=== PATIENT | female | born 1950 | race Caucasian/White ===

== ENCOUNTER 2019-01-27 20:37 | Observation (INO) | payer MEDICARE, BC ==
[2019-01-27] MEDS ORDERED: Morphine 2 MG/ML Syringe IVPUSH ONE (21:34)
[2019-01-27] MEDS ORDERED: Sodium Chloride 0.9% 10 ML Syringe FLUSH PRN (21:34)
[2019-01-27] MEDS ORDERED: Ondansetron 4 MG/2 ML SDV IVPUSH ONE (21:34)
[2019-01-27] MEDS ORDERED: Sodium Chloride 0.9% 1,000 ML IV ONE (21:34)
[2019-01-27] MEDS ORDERED: Sodium Chloride 0.9% 2.5 ML Syringe FLUSH PRN (21:34)
--- NOTE | 2019-01-27 21:36 | EDM.PDOC ---
ED HPI GENERAL MEDICAL PROBLEM - General Chief Complaint: Gastrointestinal Problem Stated Complaint: PT HAS CHEST PAINS Time Seen by Provider: 01/27/19 21:10 - History of Present Illness INITIAL COMMENTS - FREE TEXT/NARRATIVE: HISTORY AND PHYSICAL: History of present illness: The patient is a 68-year-old female with a known history of hypertension and atrial fibrillation for which she takes both digoxin and Cardizem and is on Xarelto who has an abdominal surgical history of multiple C-sections, hysterectomy, 2 ventral hernia repairs with recurrence, gastric sleeve and gastric bypass but still has her gallbladder appendix and has not had bowel surgery and presents with onset of mid abdominal pain at 7 AM associated with vomiting and inability to take anything by mouth. Patient has not been vomiting black or bloody but is only vomiting when she's putting in and she tells me that for the last several days she has had harder than usual and today she only had a very small amount which is unusual for her. She has been urinating without difficulty and has no flank pain she has no shortness of breath fevers or upper respiratory infection. She says that she does have some lower chest wall pain but attributes that this to her abdomen. She has no palpitations and states compliance with her A. fib medications. Describes the pain as achy and deep. Review of systems: As per history of present illness and below otherwise all systems reviewed and negative. Past medical history: As per history of present illness and as reviewed below otherwise noncontributory. Surgical history: As per history of present illness and as reviewed below otherwise noncontributory. Social history: No reported history of drug or alcohol abuse. Family history: As per history of present illness and as reviewed below otherwise noncontributory. Physical exam: General: Well-developed well-nourished female who is nontoxic and vital signs were noted by me. The patient had an emesis in the room prior to my arrival which I have looked at it and it is not black or bloody but looks dowling/greenish in color and it looks like there are some small seeds. Vital signs are noted by me HEENT: Atraumatic, normocephalic, pupils reactive, negative for conjunctival pallor or scleral icterus, mucous membranes tacky, throat clear, neck supple, nontender, trachea midline. Lungs: Clear to auscultation, breath sounds equal bilaterally, chest nontender. Heart: S1S2, regular rate but irregularly irregular rhythm consistent with her A. fib, no overt murmurs negative for clicks, rubs, or JVD. Abdomen: Soft, nondistended, is only minimal tenderness on deep palpation of the mid abdomen and this mid abdominal/periumbilical area is very globular and there appears to be a large ventral hernia. Negative for masses or hepatosplenomegaly. Bowel sounds are hypoactive and there is some tympany diffusely on percussion but no rebound or guarding Pelvis: Stable nontender. Genitourinary: Deferred. Rectal: Deferred. Extremities: Atraumatic, negative for cords or calf pain. Neurovascular unremarkable. No edema Neuro: Awake, alert, oriented. Cranial nerves II through XII unremarkable. Cerebellum unremarkable. Motor and sensory unremarkable throughout. Exam nonfocal. Diagnostics: EKG CBC CMP amylase lipase INR digoxin level lactate troponin one view chest x- ray UA with micro-CT scan of the abdomen and pelvis urine culture Therapeutics: IV O2 monitor IV fluids Zofran and morphine 0025: THis was discussed with our surgeon regional sales director Dr. Hoskins who is aware of all test results including CAT scan and would like to be the planning consultant on this case and have the case admitted to medicine. I will discuss this case with the hospitalist Patient looks much improved and is no longer having any vomiting and feels really great but she is aware of all testing results and need for admission. Case was discussed with Dr. Keating at 004 7 AM and he agrees for observation admission Impression: Small bowel obstruction Ventral wall hernias stable Definitive disposition and diagnosis as appropriate pending reevaluation and review of above. abdominal Pain Score (Numeric/FACES): 8 - Related Data Allergies Allergy/AdvReac Type Severity Reaction Status Date / Time Penicillins Allergy Rash Verified 01/27/19 21:05 Home Meds: Home Meds Sertraline [Zoloft] 100 mg PO DAILY 10/13/13 [History] Aspirin [Adult Low Dose Aspirin EC] 81 mg PO DAILY #100 tablet. 01/15/14 [Rx] Digoxin [Lanoxin] 250 mcg PO DAILY #30 tablet 01/15/14 [Rx] Diltiazem [Cardizem CD] 360 mg PO DAILY #30 cap.cd 01/15/14 [Rx] Metoprolol Succinate [Toprol XL 50mg] 50 mg PO DAILY #30 tab.er 01/15/14 [Rx] Rivaroxaban [Xarelto] 20 mg PO DAILY 01/27/19 [History] Past Medical History HEENT History: Reports: None Cardiovascular History: Reports: Afib, Hypertension Respiratory History: Reports: Other (See Below) Other Respiratory History: chronic smoker Musculoskeletal History: Reports: None Neurological History: Reports: None Psychiatric History: Reports: None Endocrine/Metabolic History: Reports: None Dermatologic History: Reports: None - Infectious Disease History Infectious Disease History: Reports: Chicken Pox, Measles - Past Surgical History GI Surgical History: Reports: Bariatric Procedure, Hernia Repair/Other Musculoskeletal Surgical History: Reports: None Social & Family History - Family History Family Medical History: Noncontributory - Tobacco Use Smoking Status *Q: Current Every Day Smoker Years of Tobacco use: 30 Packs/Tins Daily: 1 - Recreational Drug Use Recreational Drug Use: No ED ROS GENERAL - Review of Systems Review Of Systems: ROS reveals no pertinent complaints other than HPI. ED EXAM, GENERAL - Physical Exam Exam: See Below (see Dictation) Course - Vital Signs Last Recorded V/S: Last Vital Signs Temp 36.2 C 01/27/19 21:08 Pulse 86 01/28/19 00:01 Resp 18 01/28/19 00:01 BP 170/84 H 01/28/19 00:01 Pulse Ox 97 01/28/19 00:01 - Orders/Labs/Meds Orders: Active Orders 24 hr Category Date Time Status Patient Status [ADT] Stat ADT 01/28/19 00:48 Ordered Cardiac Monitoring [RC] . DIRECTED Care 01/27/19 21:33 Active EKG Documentation Completion [RC] STAT Care 01/27/19 20:41 Active Notify Provider Consults [RC] ASDIRECTED Care 01/28/19 00:42 Active Oxygen Therapy, ED [RC] ASDIRECTED Care 01/27/19 21:33 Active Pulse Oximetry [RC] ASDIRECTED Care 01/27/19 21:33 Active Consult to Physician [CONS] Stat Cons 01/28/19 00:41 Active CULTURE URINE [RM] Stat Lab 01/27/19 21:46 Received Sodium Chloride 0.9% [Normal Saline] 1,000 ml Med 01/28/19 00:45 Active IV ASDIRECTED Sodium Chloride 0.9% [Saline Flush] Med 01/27/19 21:34 Active 10 ml FLUSH ASDIRECTED PRN Sodium Chloride 0.9% [Saline Flush] Med 01/27/19 21:34 Active 2.5 ml FLUSH ASDIRECTED PRN Saline Lock Insert [OM.PC] Stat Oth 01/27/19 21:33 Ordered Medication Orders Sodium Chloride (Normal Saline) 1,000 mls @ 125 mls/hr IV ASDIRECTED ARNOL Sodium Chloride (Saline Flush) 10 ml FLUSH ASDIRECTED PRN PRN Reason: Keep Vein Open Last Admin: 01/27/19 22:03 Dose: 10 ml Sodium Chloride (Saline Flush) 2.5 ml FLUSH ASDIRECTED PRN PRN Reason: Keep Vein Open Last Admin: 01/27/19 22:03 Dose: 2.5 ml Labs: Laboratory Tests 01/27/19 01/27/19 01/27/19 Range/Units 21:39 21:39 21:39 WBC 10.26 (4.0-11.0) K/uL RBC 6.07 H (4.30-5.90) M/uL Hgb 20.8 H (12.0-16.0) g/dL Hct 57.2 H (36.0-46.0) % MCV 94.2 (80.0-98.0) fL MCH 34.3 H (27.0-32.0) pg MCHC 36.4 (31.0-37.0) g/dL RDW Std Deviation 44.4 (28.0-62.0) fl RDW Coeff of Rosie 13 (11.0-15.0) % Plt Count 197 (150-400) K/uL MPV 9.90 (7.40-12.00) fL Neut % (Auto) 88.0 H (48.0-80.0) % Lymph % (Auto) 6.1 L (16.0-40.0) % [place] % (Auto) 5.7 (0.0-15.0) % Eos % (Auto) 0.1 (0.0-7.0) % Baso % (Auto) 0.1 (0.0-1.5) % Neut # (Auto) 9.0 H (1.4-5.7) K/uL Lymph # (Auto) 0.6 (0.6-2.4) K/uL [place] # (Auto) 0.6 (0.0-0.8) K/uL Eos # (Auto) 0.0 (0.0-0.7) K/uL Baso # (Auto) 0.0 (0.0-0.1) K/uL Nucleated RBC % 0.0 /100WBC Nucleated RBCs # 0 K/uL INR 1.30 Lactate 2.8 H (0.20-2.00) mmol/L Sodium (136-145) mmol/L Potassium (3.5-5.1) mmol/L Chloride (98-107) mmol/L Carbon Dioxide (21.0-32.0) mmol/L BUN (7.0-18.0) mg/dL Creatinine (0.6-1.0) mg/dL Est Cr Clr Drug Dosing mL/min Estimated GFR (MDRD) ml/min Glucose (74-106) mg/dL Calcium (8.5-10.1) mg/dL Total Bilirubin (0.2-1.0) mg/dL AST (15-37) IU/L ALT (14-63) IU/L Alkaline Phosphatase (46-116) U/L Troponin I (0.000-0.056) ng/mL Total Protein (6.4-8.2) g/dL Albumin (3.4-5.0) g/dL Globulin (2.6-4.0) g/dL Albumin/Globulin Ratio (0.9-1.6) Amylase (25-115) U/L Lipase (73-393) U/L Urine Color Urine Appearance Urine pH (5.0-8.0) Ur Specific [place] (1.001-1.035) Urine Protein (NEGATIVE) mg/dL Urine Glucose (UA) (NEGATIVE) mg/dL Urine Ketones (NEGATIVE) mg/dL Urine Occult Blood (NEGATIVE) Urine Nitrite (NEGATIVE) Urine Bilirubin (NEGATIVE) Urine Ictotest Urine Urobilinogen (<2.0) EU/dL Ur Leukocyte Esterase (NEGATIVE) Urine RBC (0-2/HPF) Urine WBC (0-5/HPF) Ur Epithelial Cells (NONE-FEW) Urine Bacteria (NEGATIVE) Digoxin (0.9-2.0) ng/mL 01/27/19 01/27/19 Range/Units 21:39 21:46 WBC (4.0-11.0) K/uL RBC (4.30-5.90) M/uL Hgb (12.0-16.0) g/dL Hct (36.0-46.0) % MCV (80.0-98.0) fL MCH (27.0-32.0) pg MCHC (31.0-37.0) g/dL RDW Std Deviation (28.0-62.0) fl RDW Coeff of Rosie (11.0-15.0) % Plt Count (150-400) K/uL MPV (7.40-12.00) fL Neut % (Auto) (48.0-80.0) % Lymph % (Auto) (16.0-40.0) % [place] % (Auto) (0.0-15.0) % Eos % (Auto) (0.0-7.0) % Baso % (Auto) (0.0-1.5) % Neut # (Auto) (1.4-5.7) K/uL Lymph # (Auto) (0.6-2.4) K/uL [place] # (Auto) (0.0-0.8) K/uL Eos # (Auto) (0.0-0.7) K/uL Baso # (Auto) (0.0-0.1) K/uL Nucleated RBC % /100WBC Nucleated RBCs # K/uL INR Lactate (0.20-2.00) mmol/L Sodium 136 (136-145) mmol/L Potassium 4.4 (3.5-5.1) mmol/L Chloride 96 L (98-107) mmol/L Carbon Dioxide 21.9 (21.0-32.0) mmol/L BUN 7 (7.0-18.0) mg/dL Creatinine 0.8 (0.6-1.0) mg/dL Est Cr Clr Drug Dosing 69.78 mL/min Estimated GFR (MDRD) > 60.0 ml/min Glucose 162 H (74-106) mg/dL Calcium 10.4 H (8.5-10.1) mg/dL Total Bilirubin 1.1 H (0.2-1.0) mg/dL AST 35 (15-37) IU/L ALT 32 (14-63) IU/L Alkaline Phosphatase 161 H (46-116) U/L Troponin I < 0.050 (0.000-0.056) ng/mL Total Protein 8.2 (6.4-8.2) g/dL Albumin 4.4 (3.4-5.0) g/dL Globulin 3.8 (2.6-4.0) g/dL Albumin/Globulin Ratio 1.2 (0.9-1.6) Amylase 19 L (25-115) U/L Lipase 98 (73-393) U/L Urine Color YELLOW Urine Appearance CLEAR Urine pH 6.0 (5.0-8.0) Ur Specific [place] 1.025 (1.001-1.035) Urine Protein 30 H (NEGATIVE) mg/dL Urine Glucose (UA) NEGATIVE (NEGATIVE) mg/dL Urine Ketones 40 H (NEGATIVE) mg/dL Urine Occult Blood NEGATIVE (NEGATIVE) Urine Nitrite NEGATIVE (NEGATIVE) Urine Bilirubin SMALL H (NEGATIVE) Urine Ictotest NEGATIVE Urine Urobilinogen 0.2 (<2.0) EU/dL Ur Leukocyte Esterase TRACE H (NEGATIVE) Urine RBC 0-1 (0-2/HPF) Urine WBC 1-2 (0-5/HPF) Ur Epithelial Cells RARE (NONE-FEW) Urine Bacteria RARE (NEGATIVE) Digoxin 1.0 (0.9-2.0) ng/mL Meds: Medications Generic Name Dose Route Start Last Admin Trade Name Freq PRN Reason Stop Dose Admin Sodium Chloride 1,000 mls @ 125 mls/hr 01/28/19 00:45 Normal Saline IV ASDIRECTED ARNOL Sodium Chloride 10 ml 01/27/19 21:34 01/27/19 22:03 Saline Flush FLUSH 10 ml ASDIRECTED PRN Administration Keep Vein Open Sodium Chloride 2.5 ml 01/27/19 21:34 01/27/19 22:03 Saline Flush FLUSH 2.5 ml ASDIRECTED PRN Administration Keep Vein Open Discontinued Medications Generic Name Dose Route Start Last Admin Trade Name Freq PRN Reason Stop Dose Admin Sodium Chloride 1,000 mls @ 999 mls/hr 01/27/19 21:34 01/27/19 21:56 Normal Saline IV 01/27/19 22:34 999 mls/hr STAT ONE Administration Morphine Sulfate 2 mg 01/27/19 21:34 01/27/19 22:00 Morphine IVPUSH 01/27/19 21:35 2 mg ONETIME ONE Administration Ondansetron HCl 4 mg 01/27/19 21:34 01/27/19 21:58 Zofran IVPUSH 01/27/19 21:35 4 mg ONETIME ONE Administration Departure - Departure Time of Disposition: 00:50 Disposition: Refer to Observation Condition: Good Clinical Impression: Intestinal obstruction Qualifiers: Intestinal obstruction type: unspecified Intestinal obstruction extent: partial Qualified Code(s): K56.600 - Partial intestinal obstruction, unspecified as to cause - Discharge Information Referrals: PCP,None [Primary Care Provider] - Forms: ED Department Discharge - My Orders Last 24 Hours: My Active Orders 01/27/19 21:33 Cardiac Monitoring [RC] . DIRECTED Oxygen Therapy, ED [RC] ASDIRECTED Pulse Oximetry [RC] ASDIRECTED Saline Lock Insert [OM.PC] Stat 01/27/19 21:34 Sodium Chloride 0.9% [Saline Flush] 10 ml FLUSH ASDIRECTED PRN Sodium Chloride 0.9% [Saline Flush] 2.5 ml FLUSH ASDIRECTED PRN 01/27/19 21:46 CULTURE URINE [RM] Stat 01/28/19 00:41 Consult to Physician [CONS] Stat 01/28/19 00:42 Notify Provider Consults [RC] ASDIRECTED 01/28/19 00:45 Sodium Chloride 0.9% [Normal Saline] 1,000 ml IV ASDIRECTED 01/28/19 00:48 Patient Status [ADT] Stat - Assessment/Plan Last 24 Hours: My Active Orders 01/27/19 21:33 Cardiac Monitoring [RC] . DIRECTED Oxygen Therapy, ED [RC] ASDIRECTED Pulse Oximetry [RC] ASDIRECTED Saline Lock Insert [OM.PC] Stat 01/27/19 21:34 Sodium Chloride 0.9% [Saline Flush] 10 ml FLUSH ASDIRECTED PRN Sodium Chloride 0.9% [Saline Flush] 2.5 ml FLUSH ASDIRECTED PRN 01/27/19 21:46 CULTURE URINE [RM] Stat 01/28/19 00:41 Consult to Physician [CONS] Stat 01/28/19 00:42 Notify Provider Consults [RC] ASDIRECTED 01/28/19 00:45 Sodium Chloride 0.9% [Normal Saline] 1,000 ml IV ASDIRECTED 01/28/19 00:48 Patient Status [ADT] Stat
[2019-01-27 22:41] LABS: BLOOD UREA NITROGEN,BUN 7 mg/dL (7.0-18.0); CARBON DIOXIDE,CO2 21.9 mmol/L (21.0-32.0); CHLORIDE,CL 96 mmol/L (98-107); GLUCOSE RANDOM 162 mg/dL (74-106); LIPASE 98 U/L (73-393); POTASSIUM,K 4.4 mmol/L (3.5-5.1); SODIUM,NA 136 mmol/L (136-145)
--- NOTE | 2019-01-27 22:43 | CR ---
HISTORY: Pain with shortness of breath. COMPARISON: 09/19/2015 FINDINGS: A portable erect AP view of the chest was obtained at 2213 hours. The lungs remain clear. No focal or diffuse infiltrates are present. The heart has decreased in size and is now in normal in size. The mediastinum is normal in appearance. The osseous structures are normal in appearance for the patient`s age. IMPRESSION: Normal portable chest single view. Dictated by David Vera MD @ Jan 27 2019 10:40PM Signed by Dr. David Vera @ Jan 27 2019 10:42PM
--- NOTE | 2019-01-27 23:52 | CT ---
INDICATION: Abdominal pain, vomiting TECHNIQUE: CT abdomen and pelvis acquired with 100 cc Isovue 370 IV contrast. COMPARISON: None FINDINGS: Lower chest: Unremarkable. Liver: Unremarkable. Spleen: Unremarkable. Pancreas: Unremarkable. Gallbladder and bile ducts: Unremarkable. Adrenal glands: Unremarkable. Kidneys: Unremarkable. GI tract: Multiple loops of dilated small bowel reaching a maximum diameter of 3.9 cm. Transition point is within the mid abdomen, best seen on image 85 series 201. There is a swirled appearance of the mesentery at the transition point and some hazy fat stranding within the mesentery. There are two ventral hernias, one of which contain a loop of dilated small bowel, however the hernia does not appear to be the cause of the obstruction. The other ventral hernia contains loops of normal appearing colon. There is no free air or pneumatosis. No bowel wall thickening. Surgical sutures seen along the distal greater curvature of the stomach and also within small bowel loops in the left upper quadrant. Vascular structures: Mild atherosclerotic disease. Lymph nodes: Unremarkable. Pelvic Organs: Status post hysterectomy. Bones: Unremarkable for age. IMPRESSION: Small-bowel obstruction. Transition point is in the mid abdomen and may be secondary to an adhesion although an internal hernia cannot be excluded as there is a swirled appearance of the mesentery near the transition point and some hazy stranding in the mesenteric fat. Consider surgical consultation. Status post hysterectomy. Please note that all CT scans at this facility use dose modulation, iterative reconstruction, and/or weight-based dosing when appropriate to reduce radiation dose to as low as reasonably achievable. Dictated by Eliza López MD @ Jan 27 2019 11:50PM Signed by Dr. Eliza López @ Jan 27 2019 11:50PM
[2019-01-28] MEDS ORDERED: Sodium Chloride 0.9% 1,000 ML IV SCH ×2 (00:45→04:45)
[2019-01-28] MEDS ORDERED: Ondansetron 4 MG/2 ML SDV IVPUSH ONE (01:04)
[2019-01-28] MEDS ORDERED: Benzocaine 20% Topical Spray UD MUCMEM ONE ×2 (02:22→02:46)
[2019-01-28 03:35] VITALS: BP 174/89; PULSE 101
[2019-01-28] MEDS ORDERED: Ondansetron 4 MG/2 ML SDV IVPUSH PRN (04:38)
[2019-01-28] MEDS: Morphine 2 MG/ML Syringe IVPUSH PRN ×2 (04:53→07:54)
--- NOTE | 2019-01-28 08:32 | CONS ---
DATE OF CONSULTATION: 01/28/2019 DATE OF : 1950 PRIMARY CARE PHYSICIAN: None PCP REASON FOR CONSULTATION: Consult from Dr. Keating. Concerning question is nausea, vomiting. HISTORY OF PRESENT ILLNESS: The patient is a 68-year-old lady with a very extensive surgical history and also medical problem, seen in emergency room for an intermittent, on and off diarrhea for several months and now an 18-hour history of gradual onset of abdominal pain and also nausea and vomiting. The patient remarked that the pain was about 8 or 9 when it happened today, and once in the emergency room right now the pain, the patient said is about maybe a 2 or maybe a 3. Denied prior episode. Denied trauma. Denied fever, chill, but admitted to several months of diarrhea. PAST MEDICAL HISTORY: Significant for atrial fibrillation, is followed by Dr. Rai with 6- year history of off and on blood thinner. Also hypertension. PAST SURGICAL HISTORY: Hernia repair x3, , and colonoscopy. ALLERGIES: Please refer to nursing for details. MEDICATIONS: Please refer to nursing for details. SOCIAL HISTORY: The patient is every day alcohol user and everyday smoker. PHYSICAL EXAMINATION: GENERAL: A very pleasant lady, easily moving around in bed, and getting out of bed and getting back to bed without difficulty, and also smiled to the doctor, very polite, in no acute distress. HEENT: Normocephalic, atraumatic. Sclerae anicteric. LUNGS: Clear to auscultation. HEART: Irregular without murmur. ABDOMEN: Soft. Two wide based hernia, easily reducible on either side of the midline incision. Nontender. Active bowel sounds. No high-pitched bowel sounds. LABORATORY DATA: White count is 10.8. Lactic acid was 2.8, and on repeat is 0.8. H and H and 50. IMPRESSION: A lady in her usual health, now with nausea and severe abdominal pain, but resolved. CAT scan showing dilated loop of bowel, but on clinical examination, the patient has very little pain and the fact that the patient said her pain is about 2 right now on exam. The patient would benefit from NG tube decompression and follow with serial abdominal exam as well as blood work and also imaging. In the situation that bowel obstruction and not being able to decompress the NG tube, the patient may need surgical intervention and the patient is not a surgical candidate in this hospital. The patient has more than 3 hernia repairs and is everyday smoker and on digoxin and blood thinner. Her medical problem as well as complicated surgical history makes the patient benefit to go to a higher facility in the case of surgical need. At the time of admission, the patient has well-formed stool couple of hours before coming to the emergency room and the pain is getting better. We will follow the patient with you with NG tube decompression, serial abdominal exam, and also blood work and imaging. As always, thank you for the kind referral. ALINA RIZO /[id number]
--- NOTE | 2019-01-28 08:49 | PCM.HP.2 ---
H&P History of Present Illness - General Date of Service: 01/28/19 Admit Problem/Dx: Admission Diagnosis/Problem Admission Diagnosis/Problem Intestinal obstruction Source of Information: Patient History Limitations: Reports: No Limitations - History of Present Illness Initial Comments - Free Text/Narative: This 68 year old female with pmh of afib on Xarelto for anticoagulation, HTN, tobacco use, extensive abdominal surgical history which includes c-sections x 3 , hysterectomy, 2 ventral hernia repairs with recurrence, gastric sleeve and gastric bypass presented to the ED with sudden onset abdominal pain yesterday at 0700 am. This was associated with N/V and the inability to keep any fluids down. She reports shes been having issues with constipation for the last 6 months, taking fiber and stool softeners often. Her last BM was a small "pebble " yesterday and the day prior the same thing. She is not passing gas. She denies fevers or chills. No chest pain or SOB. No dysuria or other urinary symptoms. She reports she took her Xarelto and cardiac medications yesterday but she is unsure how many actually stayed down as she was vomiting. She reports tobacco use, 1 ppd for 40+ years, drinks 2-3 beers nightly, denies withdrawal symptoms when she stops. No recreational drug use. In the ED no leukocytosis noted, hgb 20.8, HCT 57. Lactic acid 2.8, decreased to 0.8 with IV fluid resuscitation. Na 136, K+ 4.4. Bili hurtado 1.1 UA negative. and dig level 1.0. Abdominal CT obtained which revealed small bowel obstruction with transition point in the mid abdomen and may be secondary to adhesion although an internal hernia cannot be excluded as there is a swirled appearance of the mesentery near the transition point and some hazy fat stranding in the mesenteric fat. Dr Hoskins consulted in the ED, NG ordered to be placed but was unable to be placed x [address] Hoskins unsure of surgical intervention due to her extensive abdominal history. Admitted for conservative therapy. PCP, Dr Toño Jin. abdominal Pain Score (Numeric/FACES): 8 - Related Data Allergies/Adverse Reactions: Allergies Allergy/AdvReac Type Severity Reaction Status Date / Time Penicillins Allergy Rash Verified 01/28/19 03:26 Home Medications: Home Meds Sertraline [Zoloft] 100 mg PO DAILY 10/13/13 [History] Diltiazem [Cardizem CD] 360 mg PO DAILY #30 cap.cd 01/15/14 [Rx] Rivaroxaban [Xarelto] 20 mg PO DAILY 01/27/19 [History] Aspirin [Adult Low Dose Aspirin EC] 81 mg PO BEDTIME 01/28/19 [History] Digoxin [Lanoxin] 250 mg PO DAILY 01/28/19 [History] Metoprolol Succinate [Toprol XL 50mg] 100 mg PO DAILY 01/28/19 [History] Past Medical History HEENT History: Reports: None Cardiovascular History: Reports: Afib, Hypertension Respiratory History: Reports: Other (See Below) Other Respiratory History: chronic smoker Musculoskeletal History: Reports: None Neurological History: Reports: None Psychiatric History: Reports: None Endocrine/Metabolic History: Reports: None Dermatologic History: Reports: None - Infectious Disease History Infectious Disease History: Reports: Chicken Pox, Measles - Past Surgical History GI Surgical History: Reports: Bariatric Procedure (gastric sleeve and gastric bypass), Hernia Repair/Other Female Surgical History: Reports: Section (x3), Hysterectomy Musculoskeletal Surgical History: Reports: None Social & Family History - Family History Family Medical History: Noncontributory - Tobacco Use Smoking Status *Q: Former Smoker Years of Tobacco use: 30 Packs/Tins Daily: 1 Used Tobacco, but Quit: Yes Month/Year Tobacco Last Used: 20 Second Hand Smoke Exposure: No - Recreational Drug Use Recreational Drug Use: No H&P Review of Systems - Review of Systems: Review Of Systems: See Below General: Reports: No Symptoms. Denies: Fever, Chills, Malaise, Weakness HEENT: Reports: No Symptoms. Denies: Headaches, Sinus Congestion, Vertigo Pulmonary: Reports: No Symptoms. Denies: Shortness of Breath Cardiovascular: Reports: No Symptoms. Denies: Chest Pain, Edema Gastrointestinal: Reports: Abdominal Pain, Decreased Appetite, Nausea. Denies: Black Stool, Bloody Stool, Vomiting Genitourinary: Reports: No Symptoms Musculoskeletal: Reports: No Symptoms Skin: Reports: No Symptoms Psychiatric: Reports: No Symptoms Neurological: Reports: No Symptoms Hematologic/Lymphatic: Reports: No Symptoms Immunologic: Reports: No Symptoms Exam - Exam Exam: See Below - Vital Signs Vital Signs: Last Vital Signs Temp 97.6 F 01/28/19 03:34 Pulse 101 H 01/28/19 03:34 Resp 18 01/28/19 03:34 BP 174/89 H 01/28/19 03:34 Pulse Ox 97 01/28/19 03:34 Weight: 77.247 kg - Exam General: Alert, Oriented, Cooperative, Mild Distress (abdominal pain) HEENT: Conjunctiva Clear, Posterior Pharynx Clear. No: Mucosa Moist & [place] (dry ) Neck: Supple, Trachea Midline Lungs: Clear to Auscultation, Normal Respiratory Effort Cardiovascular: Regular Rate, Regular Rhythm, Normal S1, Normal S2. No: Systolic Murmur GI/Abdominal Exam: Soft, Tender (mild tenderness), Other (ventral hernia is reducible and is only mildly tender. ). No: Normal Bowel Sounds (hypoactive) Back Exam: Normal Inspection, Full Range of Motion Extremities: Normal Inspection, Normal Range of Motion, Non-Tender, No Pedal Edema Neuro Extensive - Mental Status: Alert, Oriented x3 Neuro Extensive - Motor, Sensory, Reflexes: CN II-XII Intact, Normal Gait Psychiatric: Alert, Normal Affect, Normal Mood - Patient Data Lab Results Last 24 hrs: Laboratory Results - last 24 hr 01/27/19 01/27/19 01/27/19 Range/Units 21:39 21:39 21:39 WBC 10.26 (4.0-11.0) K/uL RBC 6.07 H (4.30-5.90) M/uL Hgb 20.8 H (12.0-16.0) g/dL Hct 57.2 H (36.0-46.0) % MCV 94.2 (80.0-98.0) fL MCH 34.3 H (27.0-32.0) pg MCHC 36.4 (31.0-37.0) g/dL RDW Std Deviation 44.4 (28.0-62.0) fl RDW Coeff of Rosie 13 (11.0-15.0) % Plt Count 197 (150-400) K/uL MPV 9.90 (7.40-12.00) fL Neut % (Auto) 88.0 H (48.0-80.0) % Lymph % (Auto) 6.1 L (16.0-40.0) % [place] % (Auto) 5.7 (0.0-15.0) % Eos % (Auto) 0.1 (0.0-7.0) % Baso % (Auto) 0.1 (0.0-1.5) % Neut # (Auto) 9.0 H (1.4-5.7) K/uL Lymph # (Auto) 0.6 (0.6-2.4) K/uL [place] # (Auto) 0.6 (0.0-0.8) K/uL Eos # (Auto) 0.0 (0.0-0.7) K/uL Baso # (Auto) 0.0 (0.0-0.1) K/uL Nucleated RBC % 0.0 /100WBC Nucleated RBCs # 0 K/uL INR 1.30 Lactate 2.8 H (0.20-2.00) mmol/L Sodium (136-145) mmol/L Potassium (3.5-5.1) mmol/L Chloride (98-107) mmol/L Carbon Dioxide (21.0-32.0) mmol/L BUN (7.0-18.0) mg/dL Creatinine (0.6-1.0) mg/dL Est Cr Clr Drug Dosing mL/min Estimated GFR (MDRD) ml/min Glucose (74-106) mg/dL Calcium (8.5-10.1) mg/dL Total Bilirubin (0.2-1.0) mg/dL AST (15-37) IU/L ALT (14-63) IU/L Alkaline Phosphatase (46-116) U/L Troponin I (0.000-0.056) ng/mL Total Protein (6.4-8.2) g/dL Albumin (3.4-5.0) g/dL Globulin (2.6-4.0) g/dL Albumin/Globulin Ratio (0.9-1.6) Amylase (25-115) U/L Lipase (73-393) U/L Urine Color Urine Appearance Urine pH (5.0-8.0) Ur Specific [place] (1.001-1.035) Urine Protein (NEGATIVE) mg/dL Urine Glucose (UA) (NEGATIVE) mg/dL Urine Ketones (NEGATIVE) mg/dL Urine Occult Blood (NEGATIVE) Urine Nitrite (NEGATIVE) Urine Bilirubin (NEGATIVE) Urine Ictotest Urine Urobilinogen (<2.0) EU/dL Ur Leukocyte Esterase (NEGATIVE) Urine RBC (0-2/HPF) Urine WBC (0-5/HPF) Ur Epithelial Cells (NONE-FEW) Urine Bacteria (NEGATIVE) Digoxin (0.9-2.0) ng/mL 01/27/19 01/27/19 01/28/19 Range/Units 21:39 21:46 02:09 WBC (4.0-11.0) K/uL RBC (4.30-5.90) M/uL Hgb (12.0-16.0) g/dL Hct (36.0-46.0) % MCV (80.0-98.0) fL MCH (27.0-32.0) pg MCHC (31.0-37.0) g/dL RDW Std Deviation (28.0-62.0) fl RDW Coeff of Rosie (11.0-15.0) % Plt Count (150-400) K/uL MPV (7.40-12.00) fL Neut % (Auto) (48.0-80.0) % Lymph % (Auto) (16.0-40.0) % [place] % (Auto) (0.0-15.0) % Eos % (Auto) (0.0-7.0) % Baso % (Auto) (0.0-1.5) % Neut # (Auto) (1.4-5.7) K/uL Lymph # (Auto) (0.6-2.4) K/uL [place] # (Auto) (0.0-0.8) K/uL Eos # (Auto) (0.0-0.7) K/uL Baso # (Auto) (0.0-0.1) K/uL Nucleated RBC % /100WBC Nucleated RBCs # K/uL INR Lactate 0.8 (0.20-2.00) mmol/L Sodium 136 (136-145) mmol/L Potassium 4.4 (3.5-5.1) mmol/L Chloride 96 L (98-107) mmol/L Carbon Dioxide 21.9 (21.0-32.0) mmol/L BUN 7 (7.0-18.0) mg/dL Creatinine 0.8 (0.6-1.0) mg/dL Est Cr Clr Drug Dosing 69.78 mL/min Estimated GFR (MDRD) > 60.0 ml/min Glucose 162 H (74-106) mg/dL Calcium 10.4 H (8.5-10.1) mg/dL Total Bilirubin 1.1 H (0.2-1.0) mg/dL AST 35 (15-37) IU/L ALT 32 (14-63) IU/L Alkaline Phosphatase 161 H (46-116) U/L Troponin I < 0.050 (0.000-0.056) ng/mL Total Protein 8.2 (6.4-8.2) g/dL Albumin 4.4 (3.4-5.0) g/dL Globulin 3.8 (2.6-4.0) g/dL Albumin/Globulin Ratio 1.2 (0.9-1.6) Amylase 19 L (25-115) U/L Lipase 98 (73-393) U/L Urine Color YELLOW Urine Appearance CLEAR Urine pH 6.0 (5.0-8.0) Ur Specific [place] 1.025 (1.001-1.035) Urine Protein 30 H (NEGATIVE) mg/dL Urine Glucose (UA) NEGATIVE (NEGATIVE) mg/dL Urine Ketones 40 H (NEGATIVE) mg/dL Urine Occult Blood NEGATIVE (NEGATIVE) Urine Nitrite NEGATIVE (NEGATIVE) Urine Bilirubin SMALL H (NEGATIVE) Urine Ictotest NEGATIVE Urine Urobilinogen 0.2 (<2.0) EU/dL Ur Leukocyte Esterase TRACE H (NEGATIVE) Urine RBC 0-1 (0-2/HPF) Urine WBC 1-2 (0-5/HPF) Ur Epithelial Cells RARE (NONE-FEW) Urine Bacteria RARE (NEGATIVE) Digoxin 1.0 (0.9-2.0) ng/mL Result Diagrams: 01/27/19 21:39 01/27/19 21:39 - Problem List (1) Small bowel obstruction SNOMED Code(s): 271879406 ICD Code: K56.609 - UNSP INTESTNL OBST, UNSP TO PARTIAL VERSUS COMPLETE OBST Status: Acute Current Visit: Yes (2) Anticoagulant long-term use SNOMED Code(s): 400828320 ICD Code: Z79.01 - GROUP HOME (CURRENT) USE OF ANTICOAGULANTS Status: Chronic Current Visit: Yes (3) HTN (hypertension) SNOMED Code(s): 95416624 ICD Code: I10 - ESSENTIAL (PRIMARY) HYPERTENSION Status: Chronic Current Visit: Yes (4) Tobacco abuse SNOMED Code(s): 734661785 ICD Code: Z72.0 - TOBACCO USE Status: Chronic Current Visit: Yes (5) Afib, Atrial fibrillation SNOMED Code(s): 12770078 ICD Code: I48.91 - UNSPECIFIED ATRIAL FIBRILLATION Status: Chronic Current Visit: No Problem List Initiated/Reviewed/Updated: Yes Orders Last 24hrs: Active Orders 24 hr Category Date Time Status Patient Status [ADT] Stat ADT 01/28/19 00:48 Active Cardiac Monitoring [RC] . DIRECTED Care 01/27/19 21:33 Active EKG Documentation Completion [RC] STAT Care 01/27/19 20:41 Active Notify Provider Consults [RC] ASDIRECTED Care 01/28/19 00:42 Active Oxygen Therapy, ED [RC] ASDIRECTED Care 01/27/19 21:33 Active Pulse Oximetry [RC] ASDIRECTED Care 01/27/19 21:33 Active Up ad Ying [RC] ASDIRECTED Care 01/28/19 04:38 Active Consult to Physician [CONS] Stat Cons 01/28/19 00:41 Active NPO [Nothing Per Oral Diet] [DIET] Diet 01/28/19 Breakfast Active BMP [BASIC METABOLIC PANEL,BMP] [CHEM] Stat Lab 01/28/19 08:27 Ordered CBC WITH AUTO DIFF [HEME] Stat Lab 01/28/19 08:27 Ordered CULTURE URINE [RM] Stat Lab 01/27/19 21:46 Received Morphine Med 01/28/19 04:42 Active 2 mg IVPUSH Q3H PRN Ondansetron [Zofran] Med 01/28/19 04:38 Active 4 mg IVPUSH Q4H PRN Sodium Chloride 0.9% [Normal Saline] 1,000 ml Med 01/28/19 04:45 Active IV ASDIRECTED Sodium Chloride 0.9% [Saline Flush] Med 01/27/19 21:34 Active 10 ml FLUSH ASDIRECTED PRN Sodium Chloride 0.9% [Saline Flush] Med 01/27/19 21:34 Active 2.5 ml FLUSH ASDIRECTED PRN Nasogastric Orogastric Tube Insertion [OM.PC] Stat Oth 01/28/19 02:11 Ordered Saline Lock Insert [OM.PC] Stat Oth 01/27/19 21:33 Ordered Medication Orders Sodium Chloride (Normal Saline) 1,000 mls @ 125 mls/hr IV ASDIRECTED ARNOL Last Admin: 01/28/19 07:55 Dose: 125 mls/hr Morphine Sulfate (Morphine) 2 mg IVPUSH Q3H PRN PRN Reason: Pain Last Admin: 01/28/19 07:54 Dose: 2 mg Admin: 01/28/19 04:53 Dose: 2 mg Ondansetron HCl (Zofran) 4 mg IVPUSH Q4H PRN PRN Reason: Nausea Last Admin: 01/28/19 07:54 Dose: 4 mg Sodium Chloride (Saline Flush) 10 ml FLUSH ASDIRECTED PRN PRN Reason: Keep Vein Open Last Admin: 01/27/19 22:03 Dose: 10 ml Sodium Chloride (Saline Flush) 2.5 ml FLUSH ASDIRECTED PRN PRN Reason: Keep Vein Open Last Admin: 01/27/19 22:03 Dose: 2.5 ml Assessment/Plan Comment:: This 68 year old female admitted with SBO. NPO and IVFs continued this morning. Patient and family at bedside at requesting transfer at this time. Dr Hoskins notified who agrees, he is uncomfortable with patient extensive abdominal surgical history and now small bowel obstruction. If surgery is indicated, she would need to be transferred to higher level of care. I called [facility], as this is where Shereen's surgeon, Dr Sparks is. I spoke with Dr Ortiz who has kindly accepted patient for transfer. Hernia is reducible with no tenderness currently. We will transfer Shereen via EMS with IVFs and Morphine for pain. She will be transferred to [facility] today. Dr Hoskins and Dr Keating notified of transfer. - Mortality Measure Prognosis:: Good
[2019-01-28 09:39] LABS: BLOOD UREA NITROGEN,BUN 8 mg/dL (7.0-18.0); CARBON DIOXIDE,CO2 25.2 mmol/L (21.0-32.0); CHLORIDE,CL 101 mmol/L (98-107); GLUCOSE RANDOM 120 mg/dL (74-106); POTASSIUM,K 4.3 mmol/L (3.5-5.1); SODIUM,NA 139 mmol/L (136-145)
== END 2019-01-28 09:40 ==
LOC: MW.ED 20:37 → MW.MS 01-28 00:48
PROVIDERS: ADMIT Internal Medicine; ATTEND Internal Medicine
DX: K56.609 Unspecified intestinal obstruction, unspecified as to partial versus complete obstruction (principal); I10 Essential (primary) hypertension; I48.91 Unspecified atrial fibrillation; F17.210 Nicotine dependence, cigarettes, uncomplicated; Z79.01 Long term (current) use of anticoagulants; Z98.890 Other specified postprocedural states; Z90.710 Acquired absence of both cervix and uterus; Z98.84 Bariatric surgery status; Z88.0 Allergy status to penicillin; Z79.899 Other long term (current) drug therapy; Z79.82 Long term (current) use of aspirin
CPT/HCPCS: 36415; 71045; 74177; 80048; 80053; 80162; 81001; 82150; 83605; 83690; 84484; 85025; 85610; 87086; 93005; 96361; 96374; 96375; 96376; 99285; A9270; G0378; J2270; J2405; J7040

== ENCOUNTER 2022-08-30 08:28 | Emergency (ER) | payer MEDICARE, BC ==
[2022-08-30] MEDS ORDERED: Sodium Chloride 0.9% 10 ML Syringe FLUSH PRN (08:32)
[2022-08-30] MEDS ORDERED: Sodium Chloride 0.9% 20 ML SDV IV PRN (08:32)
[2022-08-30] MEDS ORDERED: Sodium Chloride 0.9% 2.5 ML Syringe FLUSH PRN (08:32)
[2022-08-30] MEDS ORDERED: LORazepam 2 MG/ML SDV IVPUSH ONE (08:38)
[2022-08-30] MEDS ORDERED: Labetalol 100 MG/20 ML MDV ONE (08:58)
[2022-08-30] MEDS ORDERED: Nitroglycerin 2% Oint 1 GM UD Packet ONE (09:00)
[2022-08-30 09:10] LABS: BLOOD UREA NITROGEN,BUN 6 mg/dL (7.0-18.0); CARBON DIOXIDE,CO2 16.6 mmol/L (21.0-32.0); CHLORIDE,CL 73 mmol/L (98-107); GLUCOSE RANDOM 148 mg/dL (74-106); POTASSIUM,K 3.9 mmol/L (3.5-5.1)
[2022-08-30 09:11] LABS: ESTIMATED GFR 101 mL/min (>60); SODIUM,NA 109 mmol/L (136-145)
[2022-08-30] MEDS ORDERED: Sodium Chloride 3% 500 ML IV SCH (09:15)
[2022-08-30] MEDS ORDERED: Labetalol 100 MG/20 ML MDV IVPUSH ONE ×2 (09:18)
[2022-08-30] MEDS ORDERED: Nitroglycerin 2% Oint 1 GM UD Packet TOP ONE (09:19)
[2022-08-30] MEDS ORDERED: Iopamidol 755 MG/ML 500 ML Multipack Bottle IVPUSH ONE (09:29)
[2022-08-30] MEDS ORDERED: Nitroglycerin/D5W 25 MG/250 ML BOTTLE IV SCH (09:30)
[2022-08-30] MEDS ORDERED: Nitroglycerin 0.4 MG Tab.SL SL PRN (09:57)
[2022-08-30] MEDS ORDERED: Furosemide 40 MG/4 ML VIAL IVPUSH ONE (09:57)
[2022-08-30 13:00] VITALS: BP 165/88; PULSE 85
== END 2022-08-30 13:01 ==
LOC: MW.ED 08:28
DX: R56.9 Unspecified convulsions (principal); J81.1 Chronic pulmonary edema; E87.1 Hypo-osmolality and hyponatremia; I48.91 Unspecified atrial fibrillation; I10 Essential (primary) hypertension; Z88.0 Allergy status to penicillin; Z79.01 Long term (current) use of anticoagulants; Z87.891 Personal history of nicotine dependence
CPT/HCPCS: 36415; 70450; 70496; 70498; 71045; 80053; 80162; 85025; 85610; 85730; 93005; 96365; 96366; 96375; 99285; A9270; J1940; J2060; J3490; J7131; Q9967; 94660

== ENCOUNTER 2023-07-04 10:54 | Emergency (ER) | payer MEDICARE, BC ==
[2023-07-04 11:13] LABS: BASOPHILS ABSOLUTE AUTO 0.02 K/uL (0.00-0.20); BASOPHILS PERCENT AUTO 0.3 % (0.0-1.0); EOSINOPHILS ABSOLUTE AUTO 0.17 K/uL (0.00-0.45); EOSINOPHILS PERCENT AUTO 2.2 % (0.0-6.0); HEMATOCRIT 24.8 % (37.0-47.0); HEMOGLOBIN 8.4 g/dL (12.0-16.0); IMMATURE GRAN ABSOLUTE AUTO 0.04 K/uL (0.00-0.05); IMMATURE GRAN PERCENT AUTO 0.5 % (0.0-0.4); LYMPHOCYTES ABSOLUTE AUTO 0.83 K/uL (1.00-4.80); LYMPHOCYTES PERCENT AUTO 10.8 % (24.0-44.0); MEAN CORPUSCULAR HEMOGLOBIN 32.7 pg (28.0-32.0); MEAN CORPUSCULAR HGB CONC 33.9 g/dL (32.0-36.0); MEAN CORPUSCULAR VOLUME 96.5 fL (83.0-99.0); MEAN PLATELET VOLUME 9.8 fL (9.4-12.3); MONOCYTES ABSOLUTE AUTO 0.79 K/uL (0.00-0.80); MONOCYTES PERCENT AUTO 10.3 % (0.0-8.0); NEUTROPHILS ABSOLUTE AUTO 5.83 K/uL (1.80-7.70); NEUTROPHILS PERCENT AUTO 75.9 % (41.0-71.0); PLATELET COUNT,PLT 163 K/uL (150-400); RED BLOOD CELL COUNT 2.57 M/uL (4.10-5.30); WHITE BLOOD CELL COUNT,WBC 7.68 K/uL (3.9-11.3)
[2023-07-04 11:38] LABS: INR 1.18 (0.86-1.11); PTT,PARTIAL THROMBOPLSTIN TIME 43.6 SEC (23.9-30.7)
[2023-07-04 11:52] LABS: A/G RATIO 0.9 (0.9-1.6); ALBUMIN 3.3 g/dL (3.4-5.0); CALCIUM 8.3 mg/dL (8.5-10.1); CREATININE 1.7 mg/dL (0.6-1.0); EST CRCL DRUG DOSING (CG) 31.06 mL/min; MAGNESIUM 2.2 mg/dL (1.8-2.4); POTASSIUM,K 4.8 mmol/L (3.5-5.1); PROTEIN TOTAL,TP 6.8 g/dL (6.4-8.2)
[2023-07-04] MEDS: Sodium Chloride 0.9% 10 ML Syringe FLUSH PRN (11:52)
[2023-07-04] MEDS: Sodium Chloride 0.9% 2.5 ML Syringe FLUSH PRN (11:52)
[2023-07-04] MEDS: Sodium Chloride 0.9% 1,000 ML IV STA (12:02)
[2023-07-04] MEDS: Iopamidol 755 MG/ML 500 ML Multipack Bottle IVPUSH STA (12:56)
[2023-07-04 14:04] LABS: APPEARANCE,URINE CLEAR; BILIRUBIN,URINE NEGATIVE (NEGATIVE); COLOR,URINE YELLOW; GLUCOSE,URINE NEGATIVE (NEGATIVE); KETONES,URINE NEGATIVE (NEGATIVE); LEUKOCYTE ESTERASE,URINE SMALL (NEGATIVE); NITRITE,URINE NEGATIVE (NEGATIVE); OCCULT BLOOD,URINE TRACE-INTACT (NEGATIVE); PH,URINE 5.5 (5.0-8.0); PROTEIN,URINE NEGATIVE (NEGATIVE); UROBILINOGEN,URINE 0.2 EU/dL (<2.0)
[2023-07-04 14:37] LABS: RBC,URINE 0-2 (0-2/HPF)
[2023-07-04 14:38] LABS: BACTERIA,URINE 1+ (NEGATIVE); EPITHELIAL CELLS,URINE NOT SEEN (NONE-FEW)
[2023-07-04] MEDS: cefTRIAXone 2 GM in Sodium Chloride 0.9% 50 ML IV STA (14:58)
[2023-07-04 20:48] VITALS: BP 142/72; PULSE 87
== END 2023-07-04 19:25 ==
LOC: MW.ED 10:54
DX: S32.10XA Unspecified fracture of sacrum, initial encounter for closed fracture (principal); S06.5X0A Traumatic subdural hemorrhage without loss of consciousness, initial encounter; S32.009A Unspecified fracture of unspecified lumbar vertebra, initial encounter for closed fracture; N30.00 Acute cystitis without hematuria; I10 Essential (primary) hypertension; Z88.0 Allergy status to penicillin; Z79.899 Other long term (current) drug therapy; W10.8XXA Fall (on) (from) other stairs and steps, initial encounter
CPT/HCPCS: 36415; 70450; 70486; 70491; 71260; 72125; 72131; 74177; 80053; 81001; 83690; 83735; 84484; 85025; 85610; 85730; 87086; 96361; 96365; 99285; J0696; J3490; J7030; Q9967; 87088; 87186; 93010